=== PATIENT | male | born 1975 | race Caucasian/White ===

== ENCOUNTER 2016-11-27 11:44 | Emergency (ER) | payer OTHER ==
[2016-11-27 12:22] VITALS: BP 142/85
--- NOTE | 2016-11-27 12:35 | UC ---
Knee Pain HPI - HPI Summary HPI Summary: complaint of right knee pain that started 6 days ago was working and stepped in a puddle - his foot slipped and he hyperextended his right knee and slid ambulated after the incident, swelling in his knee after incident thursday his knee started to hurt knee pain has been worsening since then constant aching pain - nonradiating worsens with extending and flexing knee, ambulating knee feel extremely unstable taking ibuprofen with some relief - History of Current Complaint Chief Complaint: UCLowerExtremity Stated Complaint: RIGHT KNEE PAIN-WC Time Seen by Provider: 11/27/16 12:30 Hx Obtained From: Patient Severity Initially: Severe - Allergies/Home Medications Allergies/Adverse Reactions: Allergies Allergy/AdvReac Type Severity Reaction Status Date / Time No Known Allergies Allergy Verified 11/27/16 12:22 Home Medications: Home Medications Trazodone HCl 100 mg PO BEDTIME 11/27/16 [History Confirmed 11/27/16] PMH/Surg Hx/FS Hx/Imm Hx Previously Healthy: Yes - Gout, kidney issues- not full functioning Cardiovascular History: Hypertension - Surgical History Surgical History: None - Family History Known Family History: Positive: Cardiac Disease, Hypertension Negative: Diabetes - Social History Occupation: Employed Full-time Lives: With Family Alcohol Use: Occasionally Substance Use Type: None Smoking Status (MU): Never Smoked Tobacco - Immunization History Most Recent Influenza Vaccination: Not the Season Review of Systems Constitutional: Negative Skin: Negative Eyes: Negative ENT: Negative Respiratory: Negative Cardiovascular: Negative Gastrointestinal: Negative Genitourinary: Negative Motor: Negative Neurovascular: Negative Musculoskeletal: Other: - right knee pain Neurological: Negative Psychological: Negative All Other Systems Reviewed And Are Negative: Yes Physical Exam Triage Information Reviewed: Yes Appearance: No Pain Distress, Well-Nourished Vital Signs: Initial Vital Signs Temp 98.9 F 11/27/16 12:12 Pulse 78 11/27/16 12:12 Resp 16 11/27/16 12:12 BP 142/85 11/27/16 12:12 Pulse Ox 100 11/27/16 12:12 Vital Signs Reviewed: Yes Eyes: Positive: Conjunctiva Clear ENT: Positive: Pharynx normal, TMs normal Neck: Positive: No Lymphadenopathy Respiratory: Positive: Lungs clear, Normal breath sounds, No respiratory distress Cardiovascular: Positive: RRR, No Murmur, Pulses Normal Abdomen Description: Positive: Nontender, Soft Bowel Sounds: Positive: Present Musculoskeletal: Positive: Other: - RLE-No bony deformities, tenderness to the lateral and medial sides of patella, edema throughout kneei. limited ROM ( extension/flexion). Limited internal and external rotation. Medial, lateral meniscus; anterior, posterior cruciate ligaments ,medial & lateral collateral ligaments intact as assessed with negative Anterior/Posterior Drawer signs, Lachmans, and McMurrays Tests.testing limited d/t edema in knee Knee Pain Course/Dx - Course Course Of Treatment: exam completed. most likely internal derangement of knee. physical exam limited d/t edema in knee. pt refuses x-ray d/t low risk of fracture. will send to Dr Ferris for further followup and treatmnet. knee immobilizer and crutches gievne to pt. - Differential Dx/Diagnosis Differential Diagnosis/HQI/PQRI: Internal Derangement Of Knee, Sprain, Strain Provider Diagnoses: right knee- internal derangement of the knee. elevated blood pressure Discharge - Discharge Plan Condition: Stable Disposition: HOME Patient Education Materials: Knee Pain (ED), Crutch Instructions (ED) Referrals: Isaias Rasmussen MD [Primary Care Provider] - Willie Ferris MD [Medical Doctor] - Additional Instructions: Please call orthopedic tech for an appointment. They will evaluate and determine your treatment. Use crutches as needed until you are seen by orthopedics. Take acetaminophen control pain Please review your discharge instructions. If your symptoms worsen call orthopedic tech or return to urgent care. Your blood pressure is elevated. Please contact your primary care provider within 1 -4 weeks for further evaluation.
== END 2016-11-27 13:22 | disposition home or self-care (01) ==
LOC: UCCORT 11:44
DX: S89.91XA Unspecified injury of right lower leg, initial encounter (principal); W18.40XA Slipping, tripping and stumbling without falling, unspecified, initial encounter; Y93.89 Activity, other specified; Y92.9 Unspecified place or not applicable; Y99.0 Civilian activity done for income or pay; I10 Essential (primary) hypertension; M10.9 Gout, unspecified
CPT/HCPCS: 99213; G0463

== ENCOUNTER 2019-07-27 10:14 | Emergency (ER) | payer BC, MEDICAID ==
[2019-07-27] MEDS ORDERED: Aspirin 81 mg CHEW TAB* 81 MG TAB.CHEW PO ONE (10:27)
--- NOTE | 2019-07-27 10:41 | UC ---
Shortness of Breath HPI - HPI Summary HPI Summary: 44-year-old male comes with chief complaint of shortness of breath. Last 2 days has been feeling short of breath with any kind of activity. Does have a history of hypertension. Also has felt the sensation of butterflies chest. Had the flu about 2 weeks ago. - History of Current Complaint Chief Complaint: UCGeneralIllness Stated Complaint: SOB Time Seen by Provider: 07/27/19 10:19 - Allergy/Home Medications Allergies/Adverse Reactions: Allergies Allergy/AdvReac Type Severity Reaction Status Date / Time No Known Allergies Allergy Verified 07/27/19 10:20 Home Medications: Home Medications Fosinopril Sodium 20 mg PO DAILY 07/27/19 [History Confirmed 07/27/19] PMH/Surg Hx/FS Hx/Imm Hx Previously Healthy: Yes Cardiovascular History: Hypertension - Surgical History Surgical History: Yes Surgery Procedure, Year, and Place: lymphnode removal - Family History Known Family History: Positive: Cardiac Disease, Hypertension Negative: Diabetes - Social History Alcohol Use: None Substance Use Type: None Smoking Status (MU): Never Smoked Tobacco - Immunization History Most Recent Influenza Vaccination: Not the 2015/2016 Season Review of Systems All Other Systems Reviewed And Are Negative: Yes Constitutional: Positive: Other - see hpi Skin: Positive: Negative Eyes: Positive: Negative ENT: Positive: Negative Respiratory: Positive: Shortness Of Breath Cardiovascular: Positive: Palpitations Gastrointestinal: Positive: Negative Motor: Positive: Negative Neurovascular: Positive: Negative Musculoskeletal: Positive: Negative Neurological/Mental Status: Positive: Negative Psychological: Positive: Negative Is Patient Immunocompromised?: No Physical Exam Triage Information Reviewed: Yes Appearance: Well-Appearing, No Pain Distress, Well-Nourished Vital Signs: Initial Vital Signs Temp 97.2 F 07/27/19 10:22 Pulse 99 07/27/19 10:22 Resp 15 07/27/19 10:22 BP 179/107 07/27/19 10:22 Pulse Ox 99 07/27/19 10:22 Vital Signs Reviewed: Yes Eye Exam: Normal Eyes: Positive: Conjunctiva Clear Neck: Positive: Supple Respiratory: Positive: Lungs clear, Normal breath sounds, No respiratory distress Cardiovascular: Positive: RRR Musculoskeletal: Positive: Strength Intact, ROM Intact, No Edema - No calf tenderness to palpation Neurological: Positive: Alert, Muscle Tone Normal Psychological: Positive: Age Appropriate Behavior Skin Exam: Normal Diagnostics - EKG Cardiac Rate: NL - at 10:19 Cardiac Rhythm: Sinus: Normal - 82bpm Ectopy: None ST Segment: Other Summary of EKG Findings: There are ST elevations in inferior and lateral leads Shortness of Breath Dx - Course Course Of Treatment: Patient's been short of breath for 2 days. His EKG does show ST elevation in inferior and lateral aspects. There is some mild concave up characteristic of the ST segments. Given the patient being short of breath with palpitations and he was transferred to [facility] by ambulance. - Differential Dx/Diagnosis Provider Diagnosis: Shortness of breath, EKG abnormalities Discharge ED - Sign-Out/Discharge Documenting (check all that apply): Patient Departure All imaging exams completed and their final reports reviewed: No Studies - Discharge Plan Condition: Stable Disposition: TRANS HIGHER LVL OF CARE FAC Referrals: Isaias Rasmussen MD [Primary Care Provider] - - Billing Disposition and Condition Condition: STABLE Disposition: Trans Higher Lvl of Care Fac
[2019-07-27 10:46] VITALS: BP 160/108
== END 2019-07-27 10:50 | disposition short-term general hospital (02) ==
LOC: UCCORT 10:14
DX: R06.02 Shortness of breath (principal); R94.31 Abnormal electrocardiogram [ECG] [EKG]; I10 Essential (primary) hypertension
CPT/HCPCS: 93005; 99213; A9270-GY; G0463

== ENCOUNTER 2021-07-01 17:44 | Inpatient (IN) ==
[2021-07-01 18:58] LABS: Hematocrit 15 % (42-52); Mean Corpuscular HGB Conc 34 g/dL (31-36); Mean Corpuscular Hemoglobin 38 pg (27-31); Mean Corpuscular Volume 111 fL (80-94); Mean Platelet Volume 6.8 fL (7.4-10.4); Platelet Count 285 10^3/uL (150-450); Red Cell Distribution Width 26 % (10-15)
[2021-07-01 18:59] LABS: Troponin I 0.02 ng/mL (<0.03)
[2021-07-01 19:17] LABS: Polychromasia 3+
[2021-07-01 19:21] LABS: White Blood Count 10.9 10^3/uL (3.5-10.8)
[2021-07-01 19:22] LABS: ABS Lymphocytes 2.4 10^3/ul (1.0-4.8); ABS Neutrophils 7.3 10^3/ul (1.5-7.7)
[2021-07-01 19:23] LABS: ABS Eosinophils 0.5 10^3/ul (0-0.6)
[2021-07-01 19:31] LABS: ALT 29 U/L (7-52); Albumin 4.3 g/dL (3.2-5.2); Albumin/Globulin Ratio 1.5 (1-3); Alkaline Phosphatase 112 U/L (35-149); Blood Urea Nitrogen 34 mg/dL (6-24); C Reactive Protein 9.83 mg/L (<8.01); CO2 Carbon Dioxide 22 mmol/L (22-32); Calcium 9.2 mg/dL (8.6-10.3); Chloride 103 mmol/L (101-111); Globulin 2.9 g/dL (2-4); Glucose 110 mg/dL (70-100); Sodium 135 mmol/L (135-145); Total Protein 7.2 g/dL (6.4-8.9); eGFR CKD-EPI 27.1 (>60)
[2021-07-01 19:35] LABS: Anion Gap 10 mmol/L (2-11)
[2021-07-01 20:18] LABS: Activated Partial Thrombo Time 24.5 seconds (26.0-38.0); INR 1.06 (0.86-1.15)
[2021-07-01 21:17] LABS: Urine Appearance Clear; Urine Color Red
[2021-07-01 21:22] LABS: Urine Bilirubin Negative (Negative); Urine Blood 3+ (Negative); Urine Glucose Negative (Negative); Urine Ketones Negative (Negative); Urine Nitrite Negative (Negative); Urine Protein 1+(30 mg/dL) (Negative); Urine Urobilinogen Negative (Negative); Urine pH 6 (5-9)
[2021-07-01 21:26] LABS: Urine Bacteria 1+ (Absent); Urine Red Blood Cell 3+(>10/hpf) (Absent); Urine White Blood Cell Absent (Absent)
[2021-07-01] MEDS ORDERED: Lactated Ringers 1000 ml BAG 1,000 ML IV ONE (21:40)
[2021-07-01 22:49] LABS: Troponin I 0.02 ng/mL (<0.03)
[2021-07-01 23:01] LABS: Creatine Kinase 503 U/L (10-223)
[2021-07-02 06:57] LABS: Potassium, Whole Blood 4.4 mmol/L (3.4-4.5)
[2021-07-02 08:11] LABS: ABS Basophils 0.2 10^3/ul (0-0.2); ABS Eosinophils 0.2 10^3/ul (0-0.6); ABS Lymphocytes 5.3 10^3/ul (1.0-4.8); ABS Neutrophils 25.2 10^3/ul (1.5-7.7); ABS Nucleated RBC 35.3 10^3/ul; Eosinophil % 0.6 %; Hematocrit 16 % (42-52); Hemoglobin 5.2 g/dL (14.0-18.0); Lymphocyte % 16.5 %; Mean Corpuscular HGB Conc 33 g/dL (31-36); Mean Corpuscular Hemoglobin 35 pg (27-31); Mean Corpuscular Volume 106 fL (80-94); Mean Platelet Volume 6.9 fL (7.4-10.4); Nucleated Red Blood Cells % 110.9; Platelet Count 264 10^3/uL (150-450); Red Blood Count 1.47 10^6 /uL (4.18-5.48); Red Cell Distribution Width 28 % (10-15); White Blood Count 31.9 10^3/uL (3.5-10.8)
[2021-07-02 08:12] LABS: Anisocytosis 2+; Macrocytosis 2+; Polychromasia 3+
[2021-07-02 08:36] LABS: Albumin 4.4 g/dL (3.2-5.2); CO2 Carbon Dioxide 21 mmol/L (22-32); Calcium 9.4 mg/dL (8.6-10.3); Chloride 103 mmol/L (101-111); Sodium 136 mmol/L (135-145)
[2021-07-02 08:42] LABS: ALT 31 U/L (7-52); Albumin/Globulin Ratio 1.4 (1-3); Alkaline Phosphatase 125 U/L (35-149); Blood Urea Nitrogen 37 mg/dL (6-24); Creatine Kinase 548 U/L (10-223); Globulin 3.2 g/dL (2-4); Glucose 269 mg/dL (70-100); Total Protein 7.6 g/dL (6.4-8.9); eGFR CKD-EPI 29.2 (>60)
[2021-07-02] MEDS: Aspirin EC 81 mg TAB.EC (enteric coated) PO SCH (09:00)
[2021-07-02 09:01] LABS: Anion Gap 12 mmol/L (2-11)
[2021-07-02 10:29] LABS: Hematocrit for Retic CNT 16 % (42-52); RBC Retic Count 1.52 10^6/uL (4.18-5.48)
[2021-07-02 10:30] LABS: Corrected Retic Count 5.7 % (0.5-1.5); Immature Retic Fraction 0.74
[2021-07-02 11:08] LABS: Ferritin 948.3 ng/mL (24-336)
[2021-07-02] MEDS: Enoxaparin 40 MG/0.4 ML SYR SUBCUT SCH (16:27)
[2021-07-03 01:13] LABS: Hematocrit 18 % (42-52); Hemoglobin 5.8 g/dL (14.0-18.0)
[2021-07-03] MEDS: Aspirin EC 81 mg TAB.EC (enteric coated) PO SCH (08:53)
[2021-07-03 09:22] LABS: Immature Retic Fraction 0.73; RBC Retic Count 2.16 10^6/uL (4.18-5.48); Red Blood Count 2.16 10^6 /uL (4.18-5.48)
[2021-07-03 09:32] LABS: Corrected Retic Count 8.6 % (0.5-1.5); Hematocrit 21 % (42-52); Hematocrit for Retic CNT 21 % (42-52); Hemoglobin 6.9 g/dL (14.0-18.0); Mean Corpuscular HGB Conc 33 g/dL (31-36); Mean Corpuscular Hemoglobin 32 pg (27-31); Mean Corpuscular Volume 97 fL (80-94); Mean Platelet Volume 6.9 fL (7.4-10.4); Platelet Count 255 10^3/uL (150-450); Red Cell Distribution Width 23 % (10-15)
[2021-07-03 09:51] LABS: ALT 29 U/L (7-52); Albumin/Globulin Ratio 1.3 (1-3); Alkaline Phosphatase 117 U/L (35-149); Blood Urea Nitrogen 45 mg/dL (6-24); CO2 Carbon Dioxide 23 mmol/L (22-32); Calcium 8.8 mg/dL (8.6-10.3); Chloride 103 mmol/L (101-111); Glucose 200 mg/dL (70-100); Sodium 136 mmol/L (135-145); eGFR CKD-EPI 25.7 (>60)
[2021-07-03 09:52] LABS: Anion Gap 10 mmol/L (2-11)
[2021-07-03 09:53] LABS: Anisocytosis 2+; Macrocytosis 1+; Microcytosis 1+
[2021-07-03 09:54] LABS: Basophilic Stippling 1+; Polychromasia 2+
[2021-07-03 09:55] LABS: ABS Basophils 0.1 10^3/ul (0-0.2); ABS Monocytes 2.8 10^3/ul (0-0.8); ABS Neutrophils 29.1 10^3/ul (1.5-7.7); ABS Nucleated RBC 18.7 10^3/ul; Eosinophil % 0.1 %; Lymphocyte % 13.5 %; Nucleated Red Blood Cells % 50.4
[2021-07-03 10:41] LABS: Potassium, Whole Blood 3.8 mmol/L (3.4-4.5)
[2021-07-03 14:35] LABS: % Iron Saturation > 90 % (14 - 50)
[2021-07-03] MEDS: Enoxaparin 40 MG/0.4 ML SYR SUBCUT SCH (16:21)
[2021-07-03 20:35] LABS: Hematocrit 22 % (42-52); Hemoglobin 7.2 g/dL (14.0-18.0)
[2021-07-04 06:34] LABS: Hematocrit 21 % (42-52); Hemoglobin 6.9 g/dL (14.0-18.0); Mean Corpuscular HGB Conc 33 g/dL (31-36); Mean Corpuscular Hemoglobin 33 pg (27-31); Mean Corpuscular Volume 101 fL (80-94); Mean Platelet Volume 7.1 fL (7.4-10.4); Platelet Count 267 10^3/uL (150-450); Red Blood Count 2.07 10^6 /uL (4.18-5.48); Red Cell Distribution Width 25 % (10-15)
[2021-07-04 06:54] LABS: ALT 32 U/L (7-52); Albumin 3.9 g/dL (3.2-5.2); Albumin/Globulin Ratio 1.3 (1-3); Alkaline Phosphatase 123 U/L (35-149); Blood Urea Nitrogen 43 mg/dL (6-24); CO2 Carbon Dioxide 22 mmol/L (22-32); Calcium 8.7 mg/dL (8.6-10.3); Chloride 105 mmol/L (101-111); Globulin 2.9 g/dL (2-4); Glucose 160 mg/dL (70-100); Sodium 137 mmol/L (135-145); Total Protein 6.8 g/dL (6.4-8.9); eGFR CKD-EPI 24.7 (>60)
[2021-07-04 06:59] LABS: Anion Gap 10 mmol/L (2-11)
[2021-07-04] MEDS: Aspirin EC 81 mg TAB.EC (enteric coated) PO SCH (07:37)
[2021-07-04 08:20] LABS: Anisocytosis 3+; Polychromasia 3+
[2021-07-04 08:21] LABS: Basophilic Stippling 1+; Macrocytosis 1+; Microcytosis 1+
[2021-07-04 08:22] LABS: ABS Basophils 0.1 10^3/ul (0-0.2); ABS Lymphocytes 6.7 10^3/ul (1.0-4.8); ABS Monocytes 3.8 10^3/ul (0-0.8); ABS Neutrophils 31.4 10^3/ul (1.5-7.7); Lymphocyte % 15.8 %
[2021-07-04] MEDS ORDERED: NS 0.9% 1000 ml BAG 1,000 ML IV SCH ×2 (09:45→12:00)
[2021-07-04 16:15] LABS: Blood Urea Nitrogen 41 mg/dL (6-24); CO2 Carbon Dioxide 24 mmol/L (22-32); Calcium 8.6 mg/dL (8.6-10.3); Chloride 103 mmol/L (101-111); Glucose 290 mg/dL (70-100); Sodium 134 mmol/L (135-145)
[2021-07-04 16:17] LABS: Anion Gap 7 mmol/L (2-11)
[2021-07-04] MEDS: Enoxaparin 40 MG/0.4 ML SYR SUBCUT SCH (16:28)
[2021-07-04 16:45] LABS: Total Iron Binding Capacity 304 mcg/dL (250 - 400)
[2021-07-04 22:54] VITALS: BP 188/82
[2021-07-05] MEDS ORDERED: Sulfamethox/Trimethoprim DS TAB 800/160 mg PO SCH (09:00)
== END 2021-07-04 19:50 | disposition home or self-care (01) | DRG 660 ==
LOC: ED 17:44 → SUATTDRO 21:29 → MEDTELE 21:29
PROVIDERS: ADMIT Hospitalist; ATTEND Hospitalist